=== PATIENT | male | born 1965 | race Two or more races ===

== ENCOUNTER 2020-03-11 20:33 | Emergency (ER) | payer OTHER ==
[~2020-03-11] VITALS: Ht 172.7 cm; Wt 93.0 kg
[~2020-03-11 20:33] MED LIST: AMOXIL500 MG PO; CIPROFLOXACIN500 MG; COZAAR100 MG; ENALAPRIL MALEA20 MG PO; VASOTEC5 MG; ZOCOR20 MG PO
== END 2020-03-12 03:48 | disposition home or self-care (01) ==
LOC: ER 20:33
DX: M25.512 Pain in left shoulder (principal); M54.2 Cervicalgia; M62.838 Other muscle spasm

== ENCOUNTER 2025-03-01 18:28 | Emergency (ER) | payer OTHER ==
[~2025-03-01] VITALS: Ht 167.6 cm; Wt 84.8 kg
[2025-03-01] MEDS ORDERED: METFORMIN HCL500 MG (19:09)
[2025-03-01] MEDS ORDERED: ACETAMINOPHEN 500 MG GEL..CAP PO ONE ×2 (19:45→19:48)
[2025-03-01] MEDS ORDERED: CEFTRIAXONE SODIUM 2,000 MG in 0.9 % SODIUM CHLORIDE 100 ML IV ONE (19:45)
[2025-03-01] MEDS ORDERED: FAMOtidine 10 MG/ML (4ML VIAL) IV PUSH ONE (19:45)
[2025-03-01] MEDS ORDERED: VANCOMYCIN HCL 1,000 MG VIAL IV ONE (19:45)
[2025-03-01] MEDS ORDERED: FAMOTIDINE/PF 20 MG/2 ML VIAL ONE (19:49)
[2025-03-01] MEDS ORDERED: VANCOMYCIN HCL 1,000 MG VIAL ONE (19:49)
[2025-03-01] MEDS ORDERED: CEFTRIAXONE SODIUM 2,000 MG VIAL ONE (19:49)
[2025-03-01 20:23] LABS: BASO % 0.2 % (0.1-1.2); EOS # 0.07 (0.04-0.54); EOS % 0.8 % (0.7-7.0); LYMPH # 3.77 (1.18-3.74); LYMPH % 44.6 % (19.3-53.1); MEAN PLATELET VOLUME 10.60 fl (9.4-12.4); MONO # 0.57 (0.24-0.82); MONO % 6.7 % (4.7-12.5); NEUT # 4.01 (1.56-6.13); NEUT % 47.5 % (34.0-71.1); RED CELL DISTRIBUTION WIDTH 12.0 % (11.6-14.4)
[2025-03-01 20:53] LABS: ERYTHROCYTE SEDIMENTATION RATE 10 mm/hr (0-20)
[2025-03-01 21:00] LABS: ALT/SGPT 32.0 U/L (12-78); AST/SGOT 23.0 U/L (15-37); BILIRUBIN TOTAL 0.83 mg/dL (0.3-1.2); BUN CREA RATIO 9.0 (7.0-25.0); CREATININE SERUM 1.33 mg/dL (0.70-1.30); GFR 55.42; GLOBULINA 3.1 G/DL (2.4-3.5); GLUCOSE FASTING 116.0 mg/dL (65-100); OSMOLALITY SERUM 288.0 MOSM/KG (275-295)
[2025-03-01] MEDS ORDERED: IBU600 MG PO (23:11)
[2025-03-01] MEDS ORDERED: AVIDOXY100 MG PO (23:11)
[2025-03-01] MEDS ORDERED: PEPCID AC20 MG PO (23:11)
== END 2025-03-02 00:21 | disposition home or self-care (01) ==
LOC: ER 18:29
PROVIDERS: General Practice
DX: L03.012 Cellulitis of left finger (principal); B20 Human immunodeficiency virus [HIV] disease; I10 Essential (primary) hypertension; E78.49 Other hyperlipidemia; E11.9 Type 2 diabetes mellitus without complications; Z79.84 Long term (current) use of oral hypoglycemic drugs